=== PATIENT | male | born 1995 | race Caucasian/White ===

== ENCOUNTER 2021-06-04 15:49 | Emergency (ER) | payer OTHER ==
[2021-06-04 15:59] VITALS: BP 145/99
[2021-06-04 16:14] LABS: BILIRUBIN,URINE NEGATIVE (NEGATIVE); GLUCOSE, URINE (UA) NEGATIVE (NEGATIVE); KETONES,URINE (UA) NEGATIVE (NEGATIVE); LEUKOCYTE ESTERASE, URINE NEGATIVE (NEGATIVE); NITRITE,URINE NEGATIVE (NEGATIVE); OCCULT BLOOD,URINE NEGATIVE (NEGATIVE); PH,URINE 6.5 PH (5.0-7.5); PROTEIN,URINE NEGATIVE (NEGATIVE); UROBILINOGEN,URINE 0.2 (NORMAL) E.U./dL (NORMAL)
[2021-06-04 16:16] LABS: CLARITY,URINE CLEAR (CLEAR)
[2021-06-04 16:26] LABS: BASOPHILS # (AUTO) 0.1 10^3/uL (0.0-0.1); BASOPHILS % (AUTO) 0.5 %; EOSINOPHILS # (AUTO) 0.1 10^3/uL (0.0-0.7); EOSINOPHILS % (AUTO) 0.6 %; HCT - HEMATOCRIT 41.4 % (42.0-52.0); HGB - HEMOGLOBIN 14.1 g/dL (14.0-18.0); LYMPHOCYTES # (AUTO) 2.5 10^3/uL (1.5-3.5); LYMPHOCYTES % (AUTO) 20.2 %; MEAN CORPUSCULAR HEMOGLOBIN 29.3 pg (27.0-31.0); MEAN CORPUSCULAR HGB CONC 34.1 g/dL (32.0-36.0); MEAN CORPUSCULAR VOLUME 85.9 fL (80.0-94.0); MEAN PLATELET VOLUME 10.3 fL (7.4-11.4); MONOCYTES # (AUTO) 1.1 10^3/uL (0.0-1.0); MONOCYTES % (AUTO) 8.4 %; NEUTROPHILS # (AUTO) 8.7 10^3/uL (1.5-6.6); NEUTROPHILS % (AUTO) 69.3 %; PLT - PLATELET COUNT 254 10^3/uL (130-450); RED BLOOD COUNT 4.82 10^6/uL (4.70-6.10); RED CELL DISTRIBUTION WIDTH 12.3 % (12.0-15.0); WHITE BLOOD COUNT 12.5 x10^3/uL (4.8-10.8)
[2021-06-04 16:37] LABS: ALBUMIN 4.8 g/dL (3.2-5.5); ALBUMIN/GLOBULIN RATIO 1.2 (1.0-2.2); BILIRUBIN,TOTAL 1.1 mg/dL (0.2-1.0); CREATININE 0.9 mg/dL (0.6-1.2); POTASSIUM 3.3 mmol/L (3.5-5.0); TOTAL PROTEIN 8.7 g/dL (6.7-8.2)
--- NOTE | 2021-06-04 17:30 | ED Physician Documentation ---
PD HPI ABD PAIN - Stated complaint Stated Complaint: GROIN PX,REDNESS,DIARRHEA - Chief complaint Chief Complaint: Abd Pain - History obtained from History obtained from: Patient - History of Present Illness Timing - onset: Today Timing - duration: Hours (4) Timing - details: Abrupt onset, Now resolved Quality: Sharp, Pain Location: RLQ Radiation: Improved by: Laying still Worsened by: Moving, Position, Palpation, Other (valsalva, heavy lifting, cough) Associated symptoms: Diarrhea (today while mass was present). No: Fever, Nausea, Vomiting, Hematemesis Similar symptoms before: No diagnosis Recently seen: Clinic - Additional information Additional information: 25-year-old [employer] male has developed some pain in the right lower quadrant about 2 weeks ago. He is having worse pain if he is coughing or doing any heavy lifting and today he had an episode of this pain and a mass was protruding from the right inguinal area. He consumed a quantity of water and had some diarrhea that he thought had some brownish blood in it. He has completely resolved his symptoms now. He denies any likelihood of STD. He has been diagnosed with a inguinal hernia and has a referral to see the surgeon. The referral is for the 16 of this month. He has not reduce the hernia himself previously. Review of Systems Constitutional: denies: Fever Eyes: denies: Decreased vision Ears: denies: Ear pain Nose: denies: Congestion Throat: denies: Sore throat Cardiac: denies: Chest pain / pressure, Palpitations Respiratory: denies: Dyspnea, Cough GI: reports: Abdominal Pain, Diarrhea, Bloody / black stool. denies: Nausea, Vomiting : denies: Dysuria, Frequency Skin: denies: Rash Musculoskeletal: denies: Neck pain, Back pain, Extremity pain Neurologic: denies: Generalized weakness, Focal weakness, Numbness PD PAST MEDICAL HISTORY - Present Medications Home Medications: Ambulatory Orders Medication Instructions Recorded Confirmed No Known Home Medications 06/04/21 06/04/21 - Allergies Allergies/Adverse Reactions: Allergies Allergy/AdvReac Type Severity Reaction Status Date / Time Penicillins Allergy Hives Verified 06/04/21 15:59 PD ED PE NORMAL - Vitals Vital signs reviewed: Yes (hypertensive ) - General General: Alert and oriented X 3, No acute distress, Well developed/nourished - HEENT HEENT: Atraumatic, PERRL, EOMI - Neck Neck: Supple, no meningeal sign, No bony TTP - Cardiac Cardiac: RRR, No murmur - Respiratory Respiratory: No respiratory distress, Clear bilaterally - Abdomen Abdomen: Normal bowel sounds, Soft, Non tender, Non distended, No organomegaly - Male Male : Other (normal non-tender testes bilat with non-tender epidydimis. Inguinal fullness appreciated with valsalva and finger in inguinal canal. Not currently incarcerated. 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, No motor deficit, No sensory deficit, Normal speech Eye Opening: Spontaneous Motor: Obeys Commands Verbal: Oriented GCS Score: 15 - Psych Psych: Normal mood, Normal affect Results - Vitals Vitals: Vital Signs - 24 hr 06/04/21 15:53 Temperature 36.4 C L Heart Rate 82 Respiratory 16 Rate Blood Pressure 145/99 H O2 Saturation 100 Oxygen O2 Source Room air - Labs Labs: Laboratory Tests 06/04/21 06/04/21 06/04/21 16:05 16:17 16:17 WBC 12.5 H RBC 4.82 Hgb 14.1 Hct 41.4 L MCV 85.9 MCH 29.3 MCHC 34.1 RDW 12.3 Plt Count 254 MPV 10.3 Neut # (Auto) 8.7 H Lymph # (Auto) 2.5 Stewart # (Auto) 1.1 H Eos # (Auto) 0.1 Baso # (Auto) 0.1 Absolute Nucleated RBC 0.00 Nucleated RBC % 0.0 Sodium 132 L Potassium 3.3 L Chloride 94 L Carbon Dioxide 26 Anion Gap 12.0 BUN 14 Creatinine 0.9 Estimated GFR (MDRD) 101 Glucose 93 Calcium 9.0 Total Bilirubin 1.1 H AST 32 ALT 42 Alkaline Phosphatase 69 Total Protein 8.7 H Albumin 4.8 Globulin 3.9 Albumin/Globulin Ratio 1.2 Lipase 33 Urine Color YELLOW Urine Clarity CLEAR Urine pH 6.5 Ur Specific Warriors Mark <=1.005 Urine Protein NEGATIVE Urine Glucose (UA) NEGATIVE Urine Ketones NEGATIVE Urine Occult Blood NEGATIVE Urine Nitrite NEGATIVE Urine Bilirubin NEGATIVE Urine Urobilinogen 0.2 (NORMAL) Ur Leukocyte Esterase NEGATIVE Ur Microscopic Review NOT INDICATED Urine Culture Comments NOT INDICATED PD MEDICAL DECISION MAKING - ED course Complexity details: reviewed results, re-evaluated patient, considered differential, d/w patient ED course: 25-year-old male with a right lower quadrant abdominal pain and a history consistent with a mass that has now reduced is concerning for right inguinal hernia. He is currently asymptomatic I have examined the patient I do not find any testicular or epididymal tenderness and history and physical exam are most consistent with inguinal hernia. I discussed with the patient the usual things will cause herniation and have indicated that she should immediately stop what he is doing get into a recumbent position and attempt to reduce the hernia manually. I have asked the patient to use circumferential pressure persistent until reduction. He did have some dark brown stool that he was concerned might be some blood in his diarrhea. He is not incarcerated now and he is asymptomatic. He has an appointment to see the general surgeon in 11 days time. I discussed with the patient reasons to return to the emergency department including not being able to reduce his hernia and having persistence of pain with this mass. He will return to the emergency department if he is unable to reduce his hernia. Departure - Departure Disposition: 01 Home, Self Care Clinical Impression: Inguinal hernia Qualifiers: Obstruction and gangrene presence: without obstruction or gangrene Laterality: unilateral Recurrence: not specified as recurrent Qualified Code(s): K40.90 - Un ilateral inguinal hernia, without obstruction or gangrene, not specified as recurrent Condition: Stable Instructions: ED Hernia Inguinal Follow-Up: FE LINDSEY MD [Primary Care Provider] - [facility] Group] Comments: Darius, it looks like you have an inguinal hernia. If you develop symptoms with this mass sticking out, lay down, place your hand over the mass using your fingers to surround it and apply continuous pressure to "reduce" the herina. If you are unable to reduce the hernia come back to the ED to see us (no matter what time it is).
== END 2021-06-04 17:48 | disposition home or self-care (01) ==
LOC: ED 15:49
DX: K40.90 Unilateral inguinal hernia, without obstruction or gangrene, not specified as recurrent (principal); R19.7 Diarrhea, unspecified
CPT/HCPCS: 36415; 80053; 81001; 81003; 83690; 85025; 87086; 99282; 99283